=== PATIENT | female | born 1995 | race American Indian/Alaskan Native ===

== ENCOUNTER 2017-06-19 13:20 | Emergency (ER) | payer OTHER ==
[2017-06-19] MEDS ORDERED: NACL 0.9% 1000 ML 1,000 ML IV ONE (13:43)
[2017-06-19 14:14] LABS: Urine Drugs of Abuse Note Disclamer
[2017-06-19 14:22] LABS: Basophils % (Auto) 0.6 % (0.0-1.8); Eosinophils % (Auto) 0.8 % (0.0-4.3); Mean Corpuscular HGB Conc 33 % (30-34); Mean Corpuscular Hemoglobin 28 pg (28-32); Mean Corpuscular Volume 85 fl (79-97); Platelet Count 232 K/mm3 (140-440); Red Blood Count 4.38 M/mm3 (3.65-5.03); Red Cell Distribution Width 12.8 % (13.2-15.2); White Blood Count 5.3 K/mm3 (4.5-11.0)
[2017-06-19 14:29] LABS: INR 1.05 (0.87-1.13)
[2017-06-19 14:30] LABS: Partial Thromboplastin Time 30.9 Sec. (24.2-36.6)
[2017-06-19 14:31] LABS: Anion Gap 18 mmol/L; Blood Urea Nitrogen 3 mg/dL (7-17); Calcium 9.3 mg/dL (8.4-10.2); Carbon Dioxide 22 mmol/L (22-30); Chloride 104.8 mmol/L (98-107); Glucose 79 mg/dL (65-100); Potassium 3.8 mmol/L (3.6-5.0); Sodium 141 mmol/L (137-145)
[2017-06-19 14:32] LABS: Bacteria,Urine 1+ /HPF (Negative); Bilirubin,Urine NEG (Negative); Blood,Urine NEG (Negative); Ketones,Urine NEG (Negative); Leukocyte Esterase,Urine NEG (Negative); Nitrite,Urine NEG (Negative); Protein,Urine <15 mg/dL mg/dL (Negative); RBC,Urine < 1.0 /HPF (0.0-6.0); Urobilinogen,Urine < 2.0 mg/dL (<2.0)
[2017-06-19 15:43] LABS: Bilirubin,Urine NEG (Negative); Blood,Urine NEG (Negative); Ketones,Urine NEG (Negative); Leukocyte Esterase,Urine TR (Negative); Mucus,Urine FEW /HPF; Nitrite,Urine NEG (Negative); Protein,Urine <15 mg/dL mg/dL (Negative); Urobilinogen,Urine < 2.0 mg/dL (<2.0)
--- NOTE | 2017-06-19 15:51 | Emergency Department Report ---
ED General Adult HPI - General Chief complaint: Syncope Stated complaint: UNRESPONSIVE Time Seen by Provider: 06/19/17 15:07 Source: patient, family, EMS Mode of arrival: Stretcher Limitations: No Limitations - History of Present Illness Initial comments: Patient admits that she was arguing and upset prior to this incident. She is a very poor historian and gives very tangential answers to what appeared to be simple and direct questions. In any case, she is here with a gentleman that was present at the time of her syncopal episode. He states that she was standing and then went to the bathroom. When she came out of the bathroom she stated that she needed to take her medicine (Colace and Zoloft). She took her medicine and then started breathing heavily and fast. Passed out completely falling to the floor but not apparently hurting herself. The patient herself denies any injuries. EMS was summoned. According to the EMS the patient was "diaphoretic". She was found to have a carotid pulse of 120 with "impaired circulation". They stated that her GCS was 8 and there reports repeated again the same thing minutes later. Complete vital signs were obtained showed a blood pressure of 150/90 and heart rate of approximately 100. The patient states that she had another syncopal episode when she was 3 months with her current child who is now 3 months of age. Therefore, one year ago approximately. She states that she is admitted to the hospital for 2- 3 days. She is very vague as to what was recommended. She mentions something about a family history of heart problems and that she was supposed to follow-up with a account coordinator. She did not follow-up. Severity scale (0 -10): 4 - Related Data Home Medications Medication Instructions Recorded Confirmed Last Taken No Known Home Medications [No 12/14/15 12/14/15 Unknown Reported Home Medications] Allergies Allergy/AdvReac Type Severity Reaction Status Date / Time No Known Allergies Allergy Unverified 12/14/15 14:44 ED Review of Systems ROS: Stated complaint: UNRESPONSIVE Other details as noted in HPI ED Past Medical Hx - Past Medical History Previous Medical History?: Yes Hx Hypertension: Yes Additional medical history: Depression - Surgical History Past Surgical History?: No Additional Surgical History: Vaginal Deliver 3 months ago - Social History Smoking Status: Never Smoker Substance Use Type: Marijuana - Medications Home Medications: Home Medications Medication Instructions Recorded Confirmed Last Taken Type No Known Home Medications [No 12/14/15 12/14/15 Unknown History Reported Home Medications] ED Physical Exam - General Limitations: No Limitations ED Course Vital Signs 06/19/17 06/19/17 06/19/17 13:24 13:26 13:30 Temperature 98.3 F Pulse Rate 87 77 85 Respiratory 19 18 17 Rate Blood Pressure 138/79 138/79 O2 Sat by Pulse 100 100 100 Oximetry 06/19/17 06/19/17 06/19/17 13:45 14:00 14:15 Temperature Pulse Rate 84 92 H 82 Respiratory 22 22 16 Rate Blood Pressure 133/78 137/80 137/80 O2 Sat by Pulse 98 100 100 Oximetry 06/19/17 06/19/17 06/19/17 14:26 14:30 14:45 Temperature Pulse Rate 77 83 Respiratory 18 15 17 Rate Blood Pressure 128/73 128/73 O2 Sat by Pulse 99 100 100 Oximetry 06/19/17 06/19/17 15:00 15:15 Temperature Pulse Rate 79 82 Respiratory 22 20 Rate Blood Pressure 136/79 136/79 O2 Sat by Pulse 100 100 Oximetry - Reevaluation(s) Reevaluation #1: I discussed the case with Dr. Hernandez, hospitalist. The patient will be admitted for syncope. She has slightly elevated d-dimer. A CT angiogram was ordered. 06/19/17 16:01 ED Medical Decision Making - Lab Data Result diagrams: 06/19/17 13:44 06/19/17 13:44 Laboratory Results - last 24 hr 06/19/17 06/19/17 06/19/17 13:44 13:44 13:44 WBC 5.3 RBC 4.38 Hgb 12.0 Hct 37.0 MCV 85 MCH 28 MCHC 33 RDW 12.8 L Plt Count 232 Lymph % (Auto) 13.3 L [place] % (Auto) 8.0 H Eos % (Auto) 0.8 Baso % (Auto) 0.6 Lymph # 0.7 L [place] # 0.4 Eos # 0.0 Baso # 0.0 Seg Neutrophils % 77.3 H Seg Neutrophils # 4.1 PT 13.6 INR 1.05 APTT 30.9 D-Dimer 291.51 H Sodium 141 Potassium 3.8 Chloride 104.8 Carbon Dioxide 22 Anion Gap 18 BUN 3 L Creatinine 0.6 L Estimated GFR > 60 BUN/Creatinine Ratio 5.00 Glucose 79 Calcium 9.3 Troponin T < 0.010 Urine Color Urine Turbidity Urine pH Ur Specific [place] Urine Protein Urine Glucose (UA) Urine Ketones Urine Blood Urine Nitrite Urine Bilirubin Urine Urobilinogen Ur Leukocyte Esterase Urine WBC (Auto) Urine RBC (Auto) U Epithel Cells (Auto) Urine Bacteria (Auto) Urine Opiates Screen Urine Methadone Screen Ur Barbiturates Screen Ur Phencyclidine Scrn Ur Amphetamines Screen U Benzodiazepines Scrn Urine Cocaine Screen U Marijuana (THC) Screen Drugs of Abuse Note 06/19/17 06/19/17 06/19/17 14:13 14:13 15:28 WBC RBC Hgb Hct MCV MCH MCHC RDW Plt Count Lymph % (Auto) [place] % (Auto) Eos % (Auto) Baso % (Auto) Lymph # [place] # Eos # Baso # Seg Neutrophils % Seg Neutrophils # PT INR APTT D-Dimer Sodium Potassium Chloride Carbon Dioxide Anion Gap BUN Creatinine Estimated GFR BUN/Creatinine Ratio Glucose Calcium Troponin T Urine Color Colorless Urine Turbidity Clear Urine pH 7.0 Ur Specific [place] 1.003 Urine Protein <15 mg/dl Urine Glucose (UA) Neg Urine Ketones Neg Urine Blood Neg Urine Nitrite Neg Urine Bilirubin Neg Neg Urine Urobilinogen < 2.0 Ur Leukocyte Esterase Neg Urine WBC (Auto) 1.0 Urine RBC (Auto) < 1.0 1.0 U Epithel Cells (Auto) < 1.0 < 1.0 Urine Bacteria (Auto) 1+ Urine Opiates Screen Presumptive negative Urine Methadone Screen Presumptive negative Ur Barbiturates Screen Presumptive negative Ur Phencyclidine Scrn Presumptive negative Ur Amphetamines Screen Presumptive negative U Benzodiazepines Scrn Presumptive negative Urine Cocaine Screen Presumptive negative U Marijuana (THC) Screen Presumptive negative Drugs of Abuse Note Disclamer Laboratory Results - last 24 hr 06/19/17 06/19/17 06/19/17 13:44 13:44 13:44 WBC 5.3 RBC 4.38 Hgb 12.0 Hct 37.0 MCV 85 MCH 28 MCHC 33 RDW 12.8 L Plt Count 232 Lymph % (Auto) 13.3 L [place] % (Auto) 8.0 H Eos % (Auto) 0.8 Baso % (Auto) 0.6 Lymph # 0.7 L [place] # 0.4 Eos # 0.0 Baso # 0.0 Seg Neutrophils % 77.3 H Seg Neutrophils # 4.1 PT 13.6 INR 1.05 APTT 30.9 D-Dimer 291.51 H Sodium 141 Potassium 3.8 Chloride 104.8 Carbon Dioxide 22 Anion Gap 18 BUN 3 L Creatinine 0.6 L Estimated GFR > 60 BUN/Creatinine Ratio 5.00 Glucose 79 Calcium 9.3 Troponin T < 0.010 Urine Color Urine Turbidity Urine pH Ur Specific [place] Urine Protein Urine Glucose (UA) Urine Ketones Urine Blood Urine Nitrite Urine Bilirubin Urine Urobilinogen Ur Leukocyte Esterase Urine WBC (Auto) Urine RBC (Auto) U Epithel Cells (Auto) Urine Bacteria (Auto) Urine Opiates Screen Urine Methadone Screen Ur Barbiturates Screen Ur Phencyclidine Scrn Ur Amphetamines Screen U Benzodiazepines Scrn Urine Cocaine Screen U Marijuana (THC) Screen Drugs of Abuse Note 06/19/17 06/19/17 06/19/17 14:13 14:13 15:28 WBC RBC Hgb Hct MCV MCH MCHC RDW Plt Count Lymph % (Auto) [place] % (Auto) Eos % (Auto) Baso % (Auto) Lymph # [place] # Eos # Baso # Seg Neutrophils % Seg Neutrophils # PT INR APTT D-Dimer Sodium Potassium Chloride Carbon Dioxide Anion Gap BUN Creatinine Estimated GFR BUN/Creatinine Ratio Glucose Calcium Troponin T Urine Color Colorless Urine Turbidity Clear Urine pH 7.0 Ur Specific [place] 1.003 Urine Protein <15 mg/dl Urine Glucose (UA) Neg Urine Ketones Neg Urine Blood Neg Urine Nitrite Neg Urine Bilirubin Neg Neg Urine Urobilinogen < 2.0 Ur Leukocyte Esterase Neg Urine WBC (Auto) 1.0 Urine RBC (Auto) < 1.0 1.0 U Epithel Cells (Auto) < 1.0 < 1.0 Urine Bacteria (Auto) 1+ Urine Opiates Screen Presumptive negative Urine Methadone Screen Presumptive negative Ur Barbiturates Screen Presumptive negative Ur Phencyclidine Scrn Presumptive negative Ur Amphetamines Screen Presumptive negative U Benzodiazepines Scrn Presumptive negative Urine Cocaine Screen Presumptive negative U Marijuana (THC) Screen Presumptive negative Drugs of Abuse Note Disclamer - EKG Data -: EKG Interpreted by Me EKG shows normal: sinus rhythm, axis, intervals, QRS complexes, ST-T waves - EKG Data Interpretation: normal EKG Critical care attestation.: If time is entered above; I have spent that time in minutes in the direct care of this critically ill patient, excluding procedure time. ED Disposition Clinical Impression: Elevated d-dimer Syncope Qualifiers: Syncope type: unspecified Qualified Code(s): R55 - Syncope and collapse Disposition: 09 OP ADMIT IP TO THIS HOSP Is pt being admited?: Yes Does the pt Need Aspirin: No Condition: Stable Instructions: Syncope (ED) Referrals: PRIMARY CARE, [Primary Care Provider] - 3-5 Days Time of Disposition: 16:01
[2017-06-19 16:52] LABS: Alanine Aminotransferase 11 units/L (7-56); Albumin 4.3 g/dL (3.9-5); Albumin/Globulin Ratio 1.2 %; Alkaline Phosphatase 83 units/L (35-129)
[2017-06-19 16:55] LABS: Bilirubin,Direct < 0.2 mg/dL (0-0.2); Bilirubin,Indirect 0.5 mg/dL
[2017-06-19] MEDS ORDERED: NACL ONE (17:25)
--- NOTE | 2017-06-19 18:07 | Cat Scan Report ---
FINAL REPORT EXAM: CT ANGIO CHEST HISTORY: JULES sl elevated dimer syncope TECHNIQUE: CT examination of the chest with IV contrast CT angiographic 2D and thick slab 3D image post-processing PRIORS: Two-view chest 11/03/2013 and 04/28/2014 FINDINGS: Normal cardiac size without pericardial effusion. Intact normal caliber thoracic aorta. Normal-appearing esophagus. No hilar mass or mediastinal adenopathy. The visualized pulmonary arteries are diffusely patent bilaterally. There is no filling defect to suggest PE. No pneumothorax, pleural effusion, or focal pulmonary consolidation. No evidence of lung nodule or mass. IMPRESSION: No acute cardiopulmonary disease. No CT evidence of PE
[2017-06-19 23:58] VITALS: BP 132/78
== END 2017-06-19 19:15 | disposition admitted as inpatient to this hospital (09) ==
LOC: ED 13:20
DX: R79.1 Abnormal coagulation profile (principal); R55 Syncope and collapse; I10 Essential (primary) hypertension; F32.9 Major depressive disorder, single episode, unspecified
CPT/HCPCS: 36415; 71275; 80048; 80074; 80307; 81001; 81025; 82962; 83880; 84484; 85025; 85379; 85610; 85730; 93005; 93010; 96360; 99285; J7030; Q9967

== ENCOUNTER 2017-07-04 22:19 | Emergency (ER) | payer OTHER ==
[2017-07-04 22:35] VITALS: BP 124/69
[2017-07-04 23:10] LABS: Basophils % (Auto) 0.8 % (0.0-1.8); Eosinophils % (Auto) 1.3 % (0.0-4.3); Hematocrit 34.8 % (30.3-42.9); Hemoglobin 11.2 gm/dl (10.1-14.3); Mean Corpuscular HGB Conc 32 % (30-34); Mean Corpuscular Hemoglobin 27 pg (28-32); Mean Corpuscular Volume 84 fl (79-97); Platelet Count 306 K/mm3 (140-440); Red Blood Count 4.16 M/mm3 (3.65-5.03); Red Cell Distribution Width 13.8 % (13.2-15.2); White Blood Count 4.9 K/mm3 (4.5-11.0)
[2017-07-04 23:30] LABS: Anion Gap 18 mmol/L; BUN/Creatinine Ratio 11.66; Blood Urea Nitrogen 7 mg/dL (7-17); Calcium 9.3 mg/dL (8.4-10.2); Carbon Dioxide 22 mmol/L (22-30); Chloride 103.5 mmol/L (98-107); Glucose 89 mg/dL (65-100); Sodium 139 mmol/L (137-145)
[2017-07-05 00:49] LABS: Bilirubin,Urine NEG (Negative); Blood,Urine NEG (Negative); Ketones,Urine NEG (Negative); Leukocyte Esterase,Urine TR (Negative); Mucus,Urine 3+ /HPF; Nitrite,Urine NEG (Negative); Protein,Urine <15 mg/dL mg/dL (Negative); Urobilinogen,Urine < 2.0 mg/dL (<2.0)
== END 2017-07-05 00:15 | disposition left against medical advice (07) ==
LOC: ED 22:19
DX: R55 Syncope and collapse (principal); Z53.21 Procedure and treatment not carried out due to patient leaving prior to being seen by health care provider
CPT/HCPCS: 36415; 80048; 81001; 84703; 85025; 93005; 93010